=== PATIENT | male | born 1985 | race Caucasian/White ===

== ENCOUNTER 2020-07-04 08:16 | Emergency (ER) | payer SELFPAY ==
[2020-07-04 08:35] VITALS: BP 155/86; PULSE 83; RESP 18; TEMP 36.6; O2SAT 96; BMI 35.5
--- NOTE | 2020-07-04 08:50 | W.ED.URI ---
HPI - URI/Sore Throat General: Chief Complaint: Upper Respiratory Infection Stated Complaint: cough/sinuses Time Seen by Provider: 07/04/20 08:29 Source: patient Limitations: no limitations History of Present Illness: HPI Narrative: pt complains of congestion, burning eyes, pain behind eyes x 2 days MD elicited complaint: fever, cough (post nasal drip ), rhinorrhea, nasal congestion and sinus pain Associated symptoms: Reports headache(s); Deny fever(s), nausea or vomiting Review of Systems General: Reports: 10 or more systems reviewed and unremarkable except in HPI and below Const: Denies: fever(s) Eyes: Reports: photophobia and eye discomfort Resp: Reports: non-productive cough; Denies: dyspnea or productive cough GI: Denies: nausea or vomiting Neuro: Reports: headache(s) PFSH ED PFSH: Medical History Amphetamine substance use disorder, moderate, in sustained remission Patient attending NA meetings, sober since 05/29/18 Chronic post-traumatic stress disorder Generalized anxiety disorder Major depressive disorder, recurrent severe without psychotic features Nicotine dependence, cigarettes, uncomplicated Social History Smoking and tobacco status: current every day smoker cigarettes Packs smoked per day: 1 Alcohol intake: never Substance/Drug Use: former Physical Exam Const: COMMON NORMALS: no acute distress, patient oriented x3, no limitations and alert GENERAL APPEARANCE: cooperative and comfortable ORIENTATION/CONSCIOUSNESS: Yes awake, Yes oriented to person, Yes oriented to place and Yes oriented to time HENMT: COMMON NORMALS: normocephalic, atraumatic, external ears normal, EAC's normal, TM's normal bilaterally and Normal external nose present HEAD & SCALP: normal to inspection, normocephalic and atraumatic FACE & SINUS: normal facial exam, sinuses nontender and face symmetric NOSE: Normal external nose present, Normal nares present and No nasal discharge present EXTERNAL EAR: Yes external ears normal EXTERNAL AUDITORY CANAL: EAC's normal TYMPANIC MEMBRANE: TM's normal bilaterally MOUTH: Normal oral and palatal mucosa present, lip normal and tongue normal THROAT: posterior oropharynx normal, tonsils normal and uvula midline Eye: COMMON NORMALS: Equal, round and reactive pupils present, EOMs intact bilaterally and conjunctivae normal GENERAL EYE: appearance normal, both eyes and all related structures and normal light reflex EYELID: eyelids normal CONJUNCTIVA: Yes conjunctivae normal PUPIL: Yes Equal, round and reactive pupils present EOM: Yes EOM abnormal DIRECT OPHTHALMOSCOPY: Yes normal light reflex Neck/C-Spine: COMMON NORMALS: full ROM, no lymphadenopathy, supple, no meningeal signs, no JVD and Thyroid normal GENERAL: Yes normal visual inspection THYROID: Thyroid normal CERVICAL SPINE: Yes cervical ROM normal and Yes normal cervical lordosis Lymph: LYMPHATIC: no lymphadenopathy noted Chest: COMMONS NORMALS: normal inspection of the chest and normal palpation of entire chest wall Resp: COMMON NORMALS: normal respiratory effort, No retractions and clear to auscultation bilaterally AUSCULTATION: clear to auscultation bilaterally Cardio: COMMON NORMALS: no JVD, regular rate, regular rhythm, S1 normal heart sound present, S2 normal heart sound present, No gallops present (Cardio), No clicks present (Cardio), No murmurs present (Cardio), No rub (Cardio) and Peripheral pulses 2+ throughout RATE: regular rate RHYTHM: regular rhythm HEART SOUNDS: S1 normal heart sound present and S2 normal heart sound present PERIPHERAL PULSES: Peripheral pulses 2+ throughout GI: COMMON NORMALS: Normal to inspection, nondistended, normoactive bowel sounds present, Soft to palpation, non-tender and no masses PALPATION: Yes Soft to palpation : COMMON NORMALS: Yes no CVA tenderness BLADDER/KIDNEY EXAM: Yes no CVA tenderness Back/Pelvis: COMMON NORMALS: no CVA tenderness, thoracic and lumbar spine normal to inspection, no thoracic nor lumbar tenderness and thoraco-lumbar ROM normal Extremity: COMMON NORMALS: normal to inspection, full ROM, capillary refill normal, no joint enlargement, no clubbing, cyanosis or edema, no calf tenderness and no pedal edema GENERAL: Yes normal exam except as noted Neuro: COMMON NORMALS: patient oriented x3, moves all extremities, no focal motor deficits, no sensory deficits noted and gait normal SENSORIUM/ORIENTATION: Yes alert, Yes oriented to person, Yes oriented to place and Yes oriented to time MENINGEAL SIGNS: Yes no meningeal signs Psych: COMMON NORMALS: mental status grossly normal, Normal thought process present, cooperative, normal affect, speech normal and activity/motor behavior normal SPEECH: Yes normal speech THOUGHT PROCESS: Normal thought process present Skin: COMMON NORMALS: no rashes or lesions noted, no wounds and turgor normal GENERAL SKIN EXAM: no rashes or lesions noted and turgor normal Course ED course: Pt presents to ER with complaints of sinus pain, burning and watery eyes, congestion, and post nasal drip cough. No fever. Pt has not been in contact with anyone with COVID19 knowingly. He does not present with any SOB. He is a smoker. Lung sounds clear. Sinuses painful with palpation. Will do oral antibx and steroids. Vital Signs: Vital signs: Vital Signs Temperature 97.9 F 07/04/20 08:35 Pulse Rate 83 07/04/20 08:35 Respiratory Rate 18 07/04/20 08:35 Blood Pressure 155/86 07/04/20 08:35 Pulse Oximetry 96 07/04/20 08:35 Discharge Plan Discharge Patient Disposition: Home Clinical Impression: Sinusitis Condition: Stable Prescriptions: New amoxicillin-pot clavulanate [Augmentin] 875-125 mg tablet 1 tab PO BID Qty: 20 RF: 0 methylprednisolone [Medrol (Lam)] 4 mg tablets,dose pack See Rx Instructions .ROUTE .COMPLEX Qty: 21 RF: 0 azithromycin [Zithromax TRI-LAM] 500 mg tablet See Rx Instructions .ROUTE .COMPLEX Qty: 3 RF: 0 No Action citalopram [Celexa] 40 mg tablet 40 mg PO .morning Qty: 90 RF: 2 hydroxyzine HCl 50 mg tablet 50 mg PO BID PRN (Reason: anxiety) Qty: 180 RF: 2 Referrals: Maurizio Blanco MD [Primary Care Provider] - Discharge Diet: Usual diet Discharge Activity: Resume usual activity and Increase activity as tolerated Activity Restrictions/Additional Instructions: Warm fluids. Increase water intake. Avoid dairy (thickens congestion). Begin Augmentin and take OTC Tylenol Severe Congestion (green box). Increase vitamin C (orange juice). IF not improving after two days of Augmentin, please stop and begin zpack and steroids. Return to your PCP or ER with worsening in symptoms or SOB. Stand Alone Forms: Work/School Release Coding Level of Care Code ED [facility] [employer] [facility]
[2020-07-04 09:34] VITALS: BP 139/78; PULSE 75; RESP 14; O2SAT 98
== END 2020-07-04 09:35 | disposition home or self-care (01) ==
PROVIDERS: Emergency Provider Nurse Practitioner Family
DX: J32.9 Chronic sinusitis, unspecified (principal); F17.210 Nicotine dependence, cigarettes, uncomplicated
CPT/HCPCS: 12345; 99281; 99282

== ENCOUNTER → 2021-11-06 18:58 | Outpatient (BNVA) | payer OTHER, SELFPAY | PROVIDERS: Visit Provider Nurse Practitioner Family | DX: N39.0 Urinary tract infection, site not specified (principal) | CPT/HCPCS: 81000 ==